=== PATIENT | male | born 1995 | race Caucasian/White ===

== ENCOUNTER 2017-04-20 21:37 | Emergency (ER) | payer OTHER ==
[~2017-04-20] VITALS: Ht 190.5 cm; Wt 117.9 kg
--- NOTE | 2017-04-20 21:41 | ED.ADGEN ---
Past History Past Medical History: Depression, Hypertension, Other Adult General Chief Complaint Chief Complaint ".. I was doing some stuff.. and I started getting this chest pain.." " About sixty dollars of coke last night...." .." A little discomfort this morning.. but I got worse chest pain tonight... about 5 or so.. on the way home from work..." HPI HPI Patient is a 21 year old male who presents with above hx and complaints central chest pain and tachycardia starting approximately 5:00 tonight. Pt. localized pain to center of chest. Some associated Dyspnea. Patient does smoke. 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 Pt denies any trauma or cough. Pt. follows with Dr. Isaacs. Father side family has cardiac issues. Patient states he's been doing coke because he is depressed. 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 Review of Systems Review of Systems Constitutional: Denies fever or chills [] Eyes: Denies change in visual acuity, redness, or eye pain [] HENT: Denies nasal congestion or sore throat [] Respiratory: Complaints of shortness of breath [] Cardiovascular: No additional information not addressed in HPI [] GI: Denies abdominal pain, nausea, vomiting, bloody stools or diarrhea [] : Denies dysuria or hematuria [] Musculoskeletal: Denies back pain or joint pain [] Integument: Denies rash or skin lesions [] Neurologic: Denies headache, focal weakness or sensory changes [] Endocrine: Denies polyuria or polydipsia [] Family History Family History Father Cardiac- age 50-60"s Current Medications Current Medications Current Medications Medications (Trade) Dose Ordered Sig/[place] Start Time Stop Time Status Last Admin Dose Admin Albuterol Sulfate (Ventolin Hfa) 60 puff STK-MED ONCE 04/21/17 01:02 04/21/17 01:49 DC Aspirin (Children'S Aspirin) 324 mg 1X ONCE 04/20/17 22:30 04/20/17 22:31 DC 04/20/17 22:39 324 MG Azithromycin (Zithromax) 250 mg STK-MED ONCE 04/21/17 01:01 04/21/17 01:49 DC Clonidine HCl (Catapres Tts-2) 1 patch 1X ONCE 04/21/17 00:00 04/21/17 00:34 DC 04/20/17 23:59 1 PATCH Clonidine HCl (Catapres) 0.1 mg STK-MED ONCE 04/21/17 01:01 04/21/17 01:49 DC Enoxaparin Sodium (Lovenox 150mg Syringe) 120 mg 1X ONCE 04/20/17 22:30 04/20/17 22:31 DC 04/20/17 22:39 120 MG Nitroglycerin (Nitro-Bid Oint) 1 inch 1X ONCE 04/21/17 00:00 04/21/17 00:34 DC 04/20/17 23:59 1 INCH Prednisone (Prednisone) 10 mg STK-MED ONCE 04/21/17 01:01 04/21/17 01:49 DC Sodium Chloride 1,000 ml @ 1,000 mls/hr Q1H 04/20/17 22:25 04/20/17 23:24 DC 04/20/17 22:36 1,000 MLS/HR Allergies Allergies Allergies Coded Allergies Type Severity Reaction Last Updated Verified No Known Drug Allergies 04/20/17 No Physical Exam Physical Exam Constitutional: Well developed, well nourished, [id number] distress, non- toxic appearance. [] HENT: Normocephalic, atraumatic, bilateral external ears normal, oropharynx moist, no oral exudates, nose normal. [] Eyes: PERRLA, EOMI, conjunctiva normal, no discharge. [] Neck: Normal range of motion, no tenderness, supple, no stridor. [] Cardiovascular: Tachycardia rate regular rhythm, no murmur [] Lungs & Thorax: Bilateral breath sounds equal at apex with few scattered wheezes on auscultation [] Abdomen: Bowel sounds normal, soft, no tenderness, no masses, no pulsatile masses. [] Skin: Warm, dry, no erythema, no rash. [] Back: No tenderness, no CVA tenderness. [] Extremities: No tenderness, no cyanosis, no clubbing, ROM intact, no edema. [] No cording in legs. Neurologic: Alert and oriented X 3, normal motor function, normal sensory function, no focal deficits noted. [] Psychologic: Affect anxious, judgement normal, mood depressed Current Patient Data Vital Signs Vital Signs Date Time Temp Pulse Resp B/P (MAP) Pulse Ox O2 Delivery O2 Flow Rate FiO2 10/25/17 01:35 98 20 156/74 (101) 98 Room Air 04/20/17 21:43 98.3 Lab Results Laboratory Tests Test 04/20/17 22:25 04/20/17 22:30 White Blood Count 13.9 x10^3/uL (4.0-11.0) H Red Blood Count 6.08 x10^6/uL (4.30-5.70) H Hemoglobin 18.1 g/dL (13.0-17.5) H Hematocrit 53.9 % (39.0-53.0) H Mean Corpuscular Volume 89 fL (79-100) Mean Corpuscular Hemoglobin 30 pg (25-35) Mean Corpuscular Hemoglobin Concent 34 g/dL (31-37) Red Cell Distribution Width 13.7 % (11.5-14.5) Platelet Count 291 x10^3/uL (140-400) Neutrophils (%) (Auto) 72 % (31-73) Lymphocytes (%) (Auto) 17 % (24-48) L Monocytes (%) (Auto) 8 % (0-9) Eosinophils (%) (Auto) 2 % (0-3) Basophils (%) (Auto) 0 % (0-3) Neutrophils # (Auto) 10.1 x10^3uL (1.8-7.7) H Lymphocytes # (Auto) 2.4 x10^3/uL (1.0-4.8) Monocytes # (Auto) 1.1 x10^3/uL (0.0-1.1) Eosinophils # (Auto) 0.3 x10^3/uL (0.0-0.7) Basophils # (Auto) 0.0 x10^3/uL (0.0-0.2) Prothrombin Time 11.7 SEC (9.4-11.4) H Prothrombin Time INR 1.1 (0.9-1.1) PTT 27 SEC (23-33) D-Dimer (Renetta) 0.20 mg/L (0.00-0.50) Sodium Level 135 mmol/L (136-145) L Potassium Level 3.6 mmol/L (3.5-5.1) Chloride Level 97 mmol/L (98-107) L Carbon Dioxide Level 24 mmol/L (21-32) Anion Gap 14 (6-14) Blood Urea Nitrogen 11 mg/dL (8-26) Creatinine 1.1 mg/dL (0.7-1.3) Estimated GFR (Cockcroft-Gault) 83.7 BUN/Creatinine Ratio 10 (6-20) Glucose Level 85 mg/dL (70-99) Calcium Level 9.2 mg/dL (8.5-10.1) Magnesium Level 2.2 mg/dL (1.8-2.4) Total Bilirubin 1.2 mg/dL (0.2-1.0) H Direct Bilirubin 0.1 mg/dL (0.0-0.2) Aspartate Amino Transferase (AST) 25 U/L (15-37) Alanine Aminotransferase (ALT) 49 U/L (16-63) Alkaline Phosphatase 69 U/L (46-116) Creatine Kinase 166 U/L (39-308) Creatine Kinase MB (Mass) 0.6 ng/mL (0.0-3.6) Creatine Kinase MB Relative Index 0.4 % (0-4) Troponin I Quantitative < 0.017 ng/mL (0-0.055) RT-Vwe-Y-Type Natriuretic Peptide 31 pg/mL (0-124) Total Protein 8.3 g/dL (6.4-8.2) H Albumin 4.4 g/dL (3.4-5.0) Albumin/Globulin Ratio 1.1 (1.0-1.7) Lipase 64 U/L (73-393) L Urine Collection Type Unknown Urine Color Straw Urine Clarity Clear Urine pH 6.0 Urine Specific Berkey <=1.005 Urine Protein Neg (NEG-TRACE) Urine Glucose (UA) Neg mg/dL (NEG) Urine Ketones (Stick) 15 mg/dL (NEG) Urine Blood Mod (NEG) Urine Nitrite Neg (NEG) Urine Bilirubin Neg (NEG) Urine Urobilinogen Dipstick 2 mg/dL (0.2 mg/dL) Urine Leukocyte Esterase Neg (NEG) Urine RBC Occ /HPF (0-2) Urine WBC Occ /HPF (0-4) Urine Squamous Epithelial Cells Occ /LPF Urine Bacteria 0 /HPF (0-FEW) Urine Opiates Screen Neg (NEG) Urine Methadone Screen Neg (NEG) Urine Barbiturates Neg (NEG) Urine Phencyclidine Screen Neg (NEG) Urine Amphetamine/Methamphetamine Pos (NEG) Urine Benzodiazepines Screen Neg (NEG) Urine Cocaine Screen Neg (NEG) Urine Cannabinoids Screen Neg (NEG) Urine Ethyl Alcohol Neg (NEG) EKG EKG My interpretation of EKG shows sinus tachycardia a t103. Bimodal p waves Lt. Incomplete BBB. Repeat EKG show s no acute change from prior- rate 98. [] Radiology/Procedures Radiology/Procedures My interpretation of CXR shows no acute cardiopulmonary changes or large infiltrates[] Course & Med Decision Making Course & Med Decision Making Pertinent Labs and Imaging studies reviewed. (See chart for details) Take daily Aspirin. Stop tobacco and drug use. Follow up with Cardiology. [facility] with [facility]. Return if an concerns. Take Zithromax 250 and Prednisone 50 daily x 5 days. Use MDI two puffs four times a day. [] Final Impression Final Impression 1. Chest Pain[] 2. Methamphetamine use- Pt though he was doing cocaine 3. Pleurisy 4. Hypertension 5 Leukocytosis 6. Bronchitis 7. Depression 8. Tobacco use-patient encouraged on smoking cessation Problems: Dragon Disclaimer Dragon Disclaimer This electronic medical record was generated, in whole or in part, using a voice recognition dictation system. JLUIS ZULETA MD Apr 20, 2017 21:41
[2017-04-20] MEDS ORDERED: IV NORMAL SALINE 1,000ML 1,000 ML IV SCH (22:25)
[2017-04-20] MEDS ORDERED: ASPIRIN 81 MG TAB.CHEW PO ONE (22:30)
[2017-04-20] MEDS ORDERED: ENOXAPARIN ** NOTE DOSE ** SYRINGE SQ ONE (22:30)
[2017-04-20 22:48] LABS: BASO % 0 % (0-3); EOS # 0.3 x10^3/uL (0.0-0.7); EOS % 2 % (0-3); HEMATOCRIT 53.9 % (39.0-53.0); HEMOGLOBIN 18.1 g/dL (13.0-17.5); LYMPH # 2.4 x10^3/uL (1.0-4.8); LYMPH % 17 % (24-48); MEAN CORPUSCULAR HEMOGLOBIN 30 pg (25-35); MEAN CORPUSCULAR HGB CONC 34 g/dL (31-37); MEAN CORPUSCULAR VOLUME 89 fL (79-100); MONO # 1.1 x10^3/uL (0.0-1.1); MONO % 8 % (0-9); NEUT # 10.1 x10^3uL (1.8-7.7); NEUT % 72 % (31-73); PLATELET COUNT 291 x10^3/uL (140-400); RED BLOOD COUNT 6.08 x10^6/uL (4.30-5.70); RED CELL DISTRIBUTION WIDTH 13.7 % (11.5-14.5); WHITE BLOOD COUNT 13.9 x10^3/uL (4.0-11.0)
--- NOTE | 2017-04-20 22:50 | EKG ---
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
[2017-04-20 22:54] LABS: BACTERIA,URINE 0 /HPF (0-FEW); BILIRUBIN,URINE NEG (NEG); CLARITY,URINE CLEAR; COLOR,URINE STRAW; GLUCOSE,URINE NEG (NEG); NITRITE,URINE NEG (NEG); RBC,URINE OCC /HPF (0-2); SQUAMOUS EPITHELIAL CELL,UR OCC /LPF; UROBILINOGEN,URINE 2 mg/dL (0.2 mg/dL); WBC,URINE OCC /HPF (0-4)
[2017-04-20 22:57] LABS: BARBITURATES NEG (NEG); BENZODIAZEPINES NEG (NEG); CANNABINOIDS NEG (NEG); COCAINE NEG (NEG); METHADONE NEG (NEG); OPIATES NEG (NEG); PHENCYCLIDINE NEG (NEG)
[2017-04-20 22:58] LABS: AMPHETAMINE/METHAMPHETAMINE POS (NEG)
[2017-04-20 23:12] LABS: ALBUMIN 4.4 g/dL (3.4-5.0); ALBUMIN/GLOBULIN RATIO 1.1 (1.0-1.7); CALCIUM 9.2 mg/dL (8.5-10.1); CREATININE 1.1 mg/dL (0.7-1.3); GFR 83.7; MAGNESIUM 2.2 mg/dL (1.8-2.4); POTASSIUM 3.6 mmol/L (3.5-5.1); TOTAL BILIRUBIN 1.2 mg/dL (0.2-1.0); TOTAL PROTEIN 8.3 g/dL (6.4-8.2)
[2017-04-20 23:13] LABS: DIRECT BILIRUBIN 0.1 mg/dL (0.0-0.2)
[2017-04-21] MEDS ORDERED: cloNIDine TTS-2 1 PATCH PATCH TD ONE
[2017-04-21] MEDS ORDERED: NITROGLYCERIN OINT 1 GM PACKET. TP ONE
[2017-04-21] MEDS ORDERED: predniSONE 10 MG TABLET PO ONE (00:45)
[2017-04-21] MEDS ORDERED: ALBUTEROL SULFATE 8GM INHALER. INH ONE (00:45)
[2017-04-21] MEDS ORDERED: AZITHROMYCIN 250 MG TABLET. PO ONE (00:45)
[2017-04-21] MEDS ORDERED: PRED50TA PO (00:57)
[2017-04-21] MEDS ORDERED: AZIT250T PO (00:57)
--- NOTE | 2017-04-21 00:59 | EKG ---
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
[2017-04-21] MEDS ORDERED: cloNIDine HCL 0.1 MG TABLET PO ONE (01:00)
[2017-04-21] MEDS ORDERED: AZITHROMYCIN 250 MG TABLET. ONE (01:01)
[2017-04-21] MEDS ORDERED: predniSONE 10 MG TABLET ONE (01:01)
[2017-04-21] MEDS ORDERED: cloNIDine HCL 0.1 MG TABLET ONE (01:01)
[2017-04-21] MEDS ORDERED: ALBUTEROL SULFATE 8GM INHALER. ONE (01:02)
[2017-04-21 01:35] VITALS: BP 156/74
--- NOTE | 2017-04-21 08:43 | RAD ---
EXAM: CHEST 1 VIEW History: Chest pain COMPARISON: 09/26/2005 TECHNIQUE: Single portable radiograph of the chest FINDINGS: The cardiac silhouette is unremarkable. The lungs are clear bilaterally. The costophrenic sulci are clear and well demarcated. IMPRESSION: No radiographic evidence of an acute cardiopulmonary process.
== END 2017-04-21 01:43 | disposition home or self-care (01) ==
LOC: ER 21:37
DX: R09.1 Pleurisy (principal); I10 Essential (primary) hypertension; D72.829 Elevated white blood cell count, unspecified; J40 Bronchitis, not specified as acute or chronic; F32.9 Major depressive disorder, single episode, unspecified; F15.90 Other stimulant use, unspecified, uncomplicated; Z72.0 Tobacco use
CPT/HCPCS: 36415; 71010; 80053; 80307; 81001; 82248; 82553; 83690; 83735; 83880; 84443; 84484; 85025; 85379; 85610; 85730; 93005; 94640; 96360; 96372; 99285; J0456; J1650; J7512; 94664; G0479; J7030

== ENCOUNTER 2018-03-06 11:05 | Emergency (ER) | payer SELFPAY ==
[~2018-03-06] VITALS: Ht 190.5 cm; Wt 113.4 kg
[~2018-03-06 11:05] MED LIST: AZIT250T PO; PRED50TA PO
[2018-03-06 11:20] VITALS: BP 144/92
--- NOTE | 2018-03-06 11:38 | PHYS DOC ---
Past History Past Medical History: Depression, Hypertension, Other Past Surgical History: No Surgical History Smoking: Cigarettes Alcohol Use: Occasionally Drug Use: Cocaine Adult General Chief Complaint Chief Complaint: FOOT INJURY PAIN HPI HPI Patient is a 22 year old male who presents with complaining of left foot injury. Patient states he jumped from a 6 feet high ladder last night and landed on his left foot without head injury or loss of consciousness. Patient complaining of pain in left foot with walking and rated his pain 10 over 10. Patient denies other injuries and focal neuro deficit and pain with rest. Review of Systems Review of Systems Constitutional: Denies fever or chills [] Eyes: Denies change in visual acuity, redness, or eye pain [] HENT: Denies nasal congestion or sore throat [] Respiratory: Denies cough or shortness of breath [] Cardiovascular: No additional information not addressed in HPI [] GI: Denies abdominal pain, nausea, vomiting, bloody stools or diarrhea [] : Denies dysuria or hematuria [] Musculoskeletal: Denies back pain, reports joint pain [] Integument: Denies rash or skin lesions [] Neurologic: Denies headache, focal weakness or sensory changes [] Endocrine: Denies polyuria or polydipsia [] All other systems were reviewed and found to be within normal limits, except as documented in this note. Allergies Allergies Allergies Coded Allergies Type Severity Reaction Last Updated Verified No Known Drug Allergies 04/20/17 No Physical Exam Physical Exam Constitutional: Well developed, well nourished, mild distress, non-toxic appearance. [] HENT: Normocephalic, atraumatic Eyes: PERRLA, EOMI, conjunctiva normal, no discharge. [] Neck: Normal range of motion, no tenderness, supple, no stridor. [] Cardiovascular:Heart rate regular rhythm, no murmur [] Lungs & Thorax: Bilateral breath sounds clear to auscultation [] Back: No tenderness, no CVA tenderness. [] Extremities: Left foot with ecchymosis in medial ankle area with tenderness of heel without neurovascular deficit, no cyanosis, no clubbing, ROM is painful, no edema. [] Neurologic: Alert and oriented X 3, normal motor function, normal sensory function, no focal deficits noted. [] Psychologic: Affect normal, judgement normal, mood normal. [] Current Patient Data Vital Signs Vital Signs Date Time Temp Pulse Resp B/P (MAP) Pulse Ox O2 Delivery O2 Flow Rate FiO2 03/06/18 11:20 98.8 72 18 99 Room Air EKG EKG [] Radiology/Procedures Radiology/Procedures [address] [address] IMAGING REPORT Signed PATIENT: DAVID ROSALES ACCOUNT: [id number] : 1995 LOCATION: ER AGE: 22 SEX: M EXAM STATUS: REG ER ORD. PHYSICIAN: HUNTER ARANA MD REASON: Inj 03/05/18 from fall off ladder, severe left heel and foot pain PROCEDURE: CALCANEUS LEFT EXAM: 1. 3 views left foot 2. Lateral and axial views left calcaneus DATE: 03/06/2018 11:27 AM INDICATION: Injury 03/05/18 from fall off ladder, severe left heel and foot pain COMPARISON: No Prior FINDINGS: No evidence of acute fracture or dislocation. Specifically no calcaneal fracture. Os trigonum is incidentally seen. Dorsal talar osteophyte is seen. Incidental note noted bipartite medial hallux MTP sesamoid. Mild calcaneal enthesopathy. Posterior subtalar joint is preserved. IMPRESSION: No evidence of acute fracture or dislocation. Electronically signed by: Hector Guzmán MD (03/06/2018 11:47 AM) [facility] DICTATED AND SIGNED BY: HECTOR GUZMÁN MD DATE: 03/06/18 1143 CC: HUNTER ARANA MD; SUELLEN BOWMAN MD ~ Course & Med Decision Making Course & Med Decision Making Pertinent Imaging studies reviewed. (See chart for details) discharge: I've spoken with the patient and/or caregivers. I've explained the patient's condition, diagnosis and treatment plan based on information available to me at this time. I've answered the patient's and/or caregivers questions and addressed any concerns. The patient and/or caregivers have a good understanding the patient's diagnosis, condition and treatment plan as can be expected at this point. Vital signs have been stabilized. The patient's condition is stable for discharge from the emergency department. The patient will pursue further outpatient evaluation with her primary care provider or other designated consulting physician as outlined in the discharge instructions. Patient and/or caregivers are agreeable to this plan of care and follow-up instructions have been explained in detail. The patient and/or caregivers have received these instructions in written format and expressed understanding of these discharge instructions. The patient and her caregivers are aware that if any significant change in condition or worsening of symptoms should prompt him to immediately return to this of the closest emergency department. If an emergent department is not readily available I would encourage him to call 911. [] Dragon Disclaimer Dragon Disclaimer This electronic medical record was generated, in whole or in part, using a voice recognition dictation system. Departure Departure: Impression: Primary Impression: Contusion of left foot Additional Impressions: Fall from ladder Tobacco abuse counseling Disposition: HOME, SELF-CARE (@1240) Condition: IMPROVED Referrals: SUELLEN BOWMAN MD (PCP) Patient Instructions: Foot Contusion Additional Instructions: Apply ice on the affected area Follow-up with your primary care physician in 3-5 days Return to ER if not getting better Scripts Ibuprofen (IBUPROFEN) 800 Mg Tablet 800 MG PO TID, #30 Prov: HUNTER ARANA MD 03/06/18 Problem Qualifiers HUNTER ARANA MD Mar 06, 2018 11:38
--- NOTE | 2018-03-06 11:50 | RAD ---
EXAM: 1. 3 views left foot 2. Lateral and axial views left calcaneus DATE: 03/06/2018 11:27 AM INDICATION: Injury 03/05/18 from fall off ladder, severe left heel and foot pain COMPARISON: No Prior FINDINGS: No evidence of acute fracture or dislocation. Specifically no calcaneal fracture. Os trigonum is incidentally seen. Dorsal talar osteophyte is seen. Incidental note noted bipartite medial hallux MTP sesamoid. Mild calcaneal enthesopathy. Posterior subtalar joint is preserved. IMPRESSION: No evidence of acute fracture or dislocation. Electronically signed by: Hector Marinelli MD (03/06/2018 11:47 AM) [facility]
[2018-03-06] MEDS ORDERED: IBUPROFEN 400 MG TABLET. PO ONE (12:00)
[2018-03-06] MEDS ORDERED: IBUP800T19 PO (12:17)
== END 2018-03-06 12:22 | disposition home or self-care (01) ==
LOC: ER 11:05
DX: S90.32XA Contusion of left foot, initial encounter (principal); I10 Essential (primary) hypertension; F17.210 Nicotine dependence, cigarettes, uncomplicated; Z71.6 Tobacco abuse counseling; W11.XXXA Fall on and from ladder, initial encounter; Y93.39 Activity, other involving climbing, rappelling and jumping off; Y92.89 Other specified places as the place of occurrence of the external cause; Y99.8 Other external cause status
CPT/HCPCS: 73630; 73650; 99284